=== PATIENT | male | born 1950 | race Caucasian/White ===

== ENCOUNTER 2024-11-23 06:18 | Day surgery (SDC) | payer MEDICARE, OTHER, SELFPAY ==
[2024-11-23] VITALS (17 sets, daily range): BP systolic 100–162; BP diastolic 55–85; BMI 34.7
[2024-11-23] MEDS: LOW STRENGTH ASPIRIN 81 MG PO (07:05)
[2024-11-23 08:39] LABS: ACT-LR - POC 202 Seconds (116-155)
[2024-11-23 08:43] LABS: ACT-LR - POC 174 Seconds (116-155)
[2024-11-23] MEDS: NSS 115 IV (09:47)
--- NOTE | 2024-11-23 12:16 | ITS.CL.CATH ---
[employer] - Catheterization
Cardiac Catheterization
Procedure Report:
RIGHT AND LEFT HEART CATHETERIZATION
Date of Procedure: November 23, 2024
Primary Care Physician: Dr. Estela Mtz
Primary Investment Executive: Myself
Procedures performed:
1: Coronary angiography
2: Left ventricular hemodynamic assessment
3: Physiologic lesion assessment of the proximal right coronary artery
INDICATION: The patient is a 74-year-old man with a past medical history significant for multivessel stenting in 2011, hyperlipidemia, hypertension, COPD, obesity, and diabetes mellitus who presents with increasing exertional dyspnea. He was
hospitalized at [facility] recently and started on IV diuretics and Jardiance for possible mild heart failure in the setting of a pulmonary illness. Since then he has felt wiped out and fatigued. He had knee replacement in August and had
no cardiac issues at that time. He has been having a lot of difficulty with postnasal drip and chronic cough. This along with the stress of managing his at home with cognitive decline is contributing to him having poor sleep which may also be
playing a role in his symptoms.
ACCESS: The patient was prepped and draped in usual sterile fashion. A 5 Qatari sheath was placed in the right common femoral artery using the Seldinger over the wire technique. A 6 Qatari sheath was then placed in the right common femoral vein
using the same technique. The right radial artery was very small caliber and it was not clear that this would be suitable for access. Of note this was used in 2011 when I did multivessel PCI.
HEMODYNAMIC FINDINGS (mmHg):
RA(a,v,m): 12, 11, 9
RV(s/d,EDP): 33/3, 9
PA(s/d/m): 34/19, 23
PCWP(a,v,m): 14, 15, 12
LV(s/d,EDP): 128/7, 14
Ao(s/d,m): 130/70, 97
Oxygen Saturations (mg/dl):
PA: 67% on room air
LV: 90% on room air
Cardiac Output/Index (l/min / l/min/m2):
Estimated Beth Method: 6.4 /3.2
VALVE HEMODYNAMICS:
No significant aortic or mitral valve stenosis.
ANGIOGRAPHIC FINDINGS:
Single-plane Left Ventriculography in PARRISH Projection: Not done.
Coronary Angiography:
Dominance: Right
Left Main: Medium caliber. Diffusely calcified with mild distal tapering. No clear obstructive disease. Unchanged from prior angiography in 2012.
Left Anterior Descending: The left anterior descending artery is calcified in the proximal and mid portions. Despite this there is only mild nonobstructive disease. The previously placed mid LAD stent is widely patent with no in-stent restenosis.
The distal vessel is also widely patent with normal flow. The LAD gives rise to 1 major bifurcating high diagonal branch which appears widely patent with normal flow.
Left Circumflex: The left circumflex is a medium caliber nondominant system that gives rise to a large high first obtuse marginal branch and a smaller distal obtuse marginal branch. The previously placed stent in the proximal/midportion of OM1 is
widely patent with no significant in-stent restenosis. The remainder of that vessel is widely patent. The distal OM is also widely patent with normal flow. Collateral filling of the posterior descending artery is noted.
Right Coronary: The right coronary artery is calcified throughout the AV groove. There is diffuse moderate luminal irregularities throughout with at worst a smooth 60% stenosis in the proximal portion. Surprisingly there was pressure dampening
with a 5 Qatari diagnostic catheter engagement. The previously placed distal RCA stent is widely patent with no significant in-stent restenosis. Interestingly the acute marginal area of the RCA appears less diseased than it did on prior
angiography in 2012. The PDA is flush occluded and fills via [id number] collaterals. The distal right has 2 medium caliber PLV branches which are widely patent with normal flow.
Other angiography:
1: In light of the above angiographic findings and catheter dampening with a 5 Qatari diagnostic catheter, I elected to perform physiologic lesion assessment of the proximal right coronary artery. The patient was given unfractionated heparin. A 5
Qatari AR-1 guiding catheter was used to engage the right coronary artery. An Omni pressure wire was advanced with the pressure transducer in the mid RCA beyond the proximal stenosis. The IFR was measured at 0.94, 0.94, and 0.94 well above the
ischemic threshold. Follow-up angiography showed no change.
Fluoroscopy Time (min): 11.2
Radiation Dose (mGy): 507
DAP (Gy.cm2): 39
Closure device: None. The femoral artery and vein groin sheaths were pulled with manual pressure for hemostasis.
Complications: None.
ASSESSMENT:
1: Widely patent previously placed LAD, circumflex, and RCA stents. No significant progressive obstructive disease with negative physiologic lesion assessment of the proximal RCA disease as described above.
2: Unremarkable pulmonary pressures with normal filling pressures.
CONCLUSIONS and RECOMMENDATIONS:
1: Continue medical therapy for coronary artery disease, hypertension, and hyperlipidemia.
2: Given unremarkable filling pressures will stop Lasix 20 mg daily. Will also stop Jardiance given his concern that this may be making him feel worse. Drop Lopressor dose from 50 twice daily to 25 mg p.o. twice daily given lowish blood pressures
at home. Continue losartan and eplerenone.
3: Will get formal pulmonary consultation given his relatively low arterial oxygen saturations. He does have a history of COPD and has been evaluated by [facility] pulmonary in the past.
Nataliya Macias M.D.
== END 2024-11-23 13:00 | disposition home or self-care (01) ==
LOC: CATH 06:18
PROVIDERS: ATTENDING PHYSICIAN Internal Medicine Interventional Cardiology; FAMILY PHYSICIAN Family Medicine
DX: I25.10 Atherosclerotic heart disease of native coronary artery without angina pectoris (principal); R06.09 Other forms of dyspnea; E78.5 Hyperlipidemia, unspecified; I10 Essential (primary) hypertension; J44.9 Chronic obstructive pulmonary disease, unspecified; E66.9 Obesity, unspecified; E11.9 Type 2 diabetes mellitus without complications; Z95.5 Presence of coronary angioplasty implant and graft
CPT/HCPCS: 93799; 85347; 93460; C1769; C1887; C1894; Q9967